=== PATIENT | male | born 1970 | race Caucasian/White ===

== ENCOUNTER 2017-01-23 10:31 | Emergency (ER) | payer MEDICARE, OTHER ==
[2015-10-23 11:16] VITALS: BP 152/92
--- NOTE | 2017-01-23 17:16 | Diagnostic Imaging Report ---
[facility] [address] [address] Report Submission Date: Jan 23, 2017 10:57:11 AM CDT Patient Study Name: MORGAN FAITH Date: Jan 23, 2017 10:34:40 AM CDT Modality Type: CR Gender: M Description: UPPER EXTREMITY : 74 Institution: [facility] Physician: CHIDI LITTLE - ER Left elbow 2 views History: Pain Findings: The left elbow is unremarkable without fracture, dislocation, arthropathy, focal bone lesion, or joint effusion. Electronically signed on Jan 23, 2017 10:57:11 AM CDT by: Price MOSQUERA
== END 2017-01-23 10:51 ==
LOC: ED 10:31
DX: M25.522 Pain in left elbow (principal)
CPT/HCPCS: 73070; 99283

== ENCOUNTER 2017-11-08 13:46 | Emergency (ER) | payer MEDICARE, OTHER ==
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
--- NOTE | 2017-11-09 00:36 | ED Physician Documentation ---
General Adult - HISTORIAN Historian: patient - HPI Stated Complaint: L great toe pain Onset: days ago (yesterday) Timing: still present Modifying Factors: tender to touch - ROS CONST: no problems - PAST HX Other History: diabetes Type 2 Allergies/Adverse Reactions: Allergies Allergy/AdvReac Type Severity Reaction Status Date / Time No Known Allergies Allergy Verified 11/08/17 13:57 Home Medications: Ambulatory Orders Medication Instructions Recorded Omeprazole [Prilosec] 20 mg PO DAILY 10/08/15 Cephalexin [Keflex] 500 mg PO TID #21 capsule 11/08/17 Metformin HCl [Glucophage] 2 tab PO BID 11/08/17 Tramadol HCl [Ultram] 50 mg PO Q4 #20 tab 11/08/17 - VITAL SIGNS Vital Signs: Vital Signs Temp Pulse Resp BP Pulse Ox 97.3 F L 113 H 17 138/81 97 11/08/17 13:53 11/08/17 13:53 11/08/17 13:53 11/08/17 13:53 11/08/17 13:53 General Adult Physical Exam - PHYSICAL EXAM GENERAL APPEARANCE: mild distress RESPIRATORY: no resp distress. No: wheezes, rales, rhonchi CVS: reg rate & rhythm, heart sounds normal, equal pulses, no murmur, no gallop SKIN: other (mild erythema to the great toe, distal aspect. Curling ingrowing toenail bilateral edges on the great toe. tender to touch on the distal toe. ) NEURO: oriented X3, mood/affect nml, cognition normal Discharge Clincal Impression: Cellulitis of toe Prescriptions: Cephalexin [Keflex] 500 mg PO TID #21 capsule Tramadol HCl [Ultram] 50 mg PO Q4 #20 tab Referrals: Primary Doctor,No [Primary Care Provider] - 2 Days Additional Instructions: Take Cephalexin 500mg three times a day and take tramadol as needed for pain. Soak foot in warm soapy water or Epsum salt for 30 minutes several times a day. Condition: Stable Disposition: 01 HOME, SELF-CARE
[2017-11-09 00:38] VITALS: BP 138/81
== END 2017-11-08 15:40 | disposition home or self-care (01) ==
LOC: ED 13:46
DX: L03.032 Cellulitis of left toe (principal)
CPT/HCPCS: 73630; 99283

== ENCOUNTER 2018-03-17 17:06 | Outpatient (CLI) | payer MEDICARE, OTHER ==
[2017-11-09 00:38] VITALS: BP 138/81
== END 2018-03-17 17:07 ==
LOC: LABRHC 17:06
PROVIDERS: ATTEND Physician Assistant
DX: M54.5 Low back pain (principal)
CPT/HCPCS: 87086

== ENCOUNTER 2018-05-19 13:02 | Emergency (ER) | payer MEDICARE, OTHER ==
[2017-11-09 00:38] VITALS: BP 138/81
== END 2018-05-19 14:28 | disposition home or self-care (01) ==
LOC: ED 13:02
DX: J02.8 Acute pharyngitis due to other specified organisms (principal)
CPT/HCPCS: 87880; 99282; 99283

== ENCOUNTER 2019-03-25 12:28 | Emergency (ER) | payer MEDICARE, OTHER ==
[2019-03-25 12:56] VITALS: BP 125/82
[2019-03-25] MEDS ORDERED: KETOROLAC TROMETHAMINE 60 MG/2 ML VIAL IM ONE (13:08)
--- NOTE | 2019-03-25 13:14 | Diagnostic Imaging Report ---
PATIENT MR#: [id number] PATIENT PATIENT NAME: MORGAN FAITH DATE OF : 1970 REFERRING PHYSICIAN: JAMAR GATES EXAM DATE: 03/25/2019 ACCESSION NUMBER: [id number] EXAM DESCRIPTION: RIBS UNILATERAL W/ PA CHEST Examination: Plain film chest/right ribs History: PT STATES RIB KEEPS "COMING OUT" AND HAS DIFFICULTY BREATHING Findings: 4 views of the chest and right ribs demonstrates normal cortical margins. No fracture or di slocation. Underlying parenchymal without abnormality. No focal consolidation or blunting of the costophrenic ma rgins. Impression: No rib fracture/abnormality. No acute cardiopulmonary process. Read by: Dr. Lloyd Mcdonald Transcribed by: Transcribed Date: Electronically signed by: Dr. Lloyd Mcdonald Date signed: 03/25/2019 1:13:22 PM
--- NOTE | 2019-03-25 13:23 | ED Physician Documentation ---
General Adult - HISTORIAN Historian: patient - HPI Stated Complaint: rt side rib pain Chief Complaint: General Adult Further Comments: yes (48 year old male patent presents with right rib pain. Patient reports getting his rib "put back in place" by the chiropractor weekly. Reports increased frequency of "rib popping out" and right thorasic back pain. Patient denies fever, chills. Complains of frequent cough.) - ROS CONST: no problems EYES/ENT: none CVS/RESP: chest pain (right chest wall pain) GI/: none MS/SKIN/LYMPH: none NEURO/PSYCH: denies: headache, fainting, dizziness, tingling, numbness, difficulty walking, difficulty with speech, anxiety, depression, other - PAST HX Past History: other (GERD) Allergies/Adverse Reactions: Allergies Allergy/AdvReac Type Severity Reaction Status Date / Time No Known Drug Allergies Allergy Verified 03/25/19 12:54 Home Medications: Ambulatory Orders Medication Instructions Recorded Omeprazole [Prilosec] 20 mg PO DAILY 10/08/15 metFORMIN HCl [Glucophage] 2 tab PO BID 11/08/17 CODEINE PHOSPHATE/guaiFENesin 10 ml PO Q6H #8 oz 03/25/19 [Robitussin AC] Ketorolac Tromethamine [Toradol] 10 mg PO TID #15 tablet 03/25/19 - SOCIAL HX Smoking History: cigarettes - FAMILY HX Family History: No - VITAL SIGNS Vital Signs: Vital Signs Temp Pulse Resp BP Pulse Ox 98.3 F 101 H 18 125/82 97 03/25/19 12:28 03/25/19 12:28 03/25/19 12:28 03/25/19 12:28 03/25/19 12:28 - REVIEWED ASSESSMENTS Nursing Assessment Reviewed: Yes Vitals Reviewed: Yes ED Results Lab/Radiology - Orders Orders: ED Orders Category Date Time Status RIBS UNILATERAL W/ PA CHEST [RAD] Stat Exams 03/25/19 Completed Ketorolac Tromethamine [Toradol] Med 03/25/19 13:08 Discontinued 60 mg IM NOW ONE General Adult Physical Exam - PHYSICAL EXAM GENERAL APPEARANCE: mild distress EENT: eye inspection normal, KARMEN RESPIRATORY: no resp distress, breath sounds normal, other (right chest wall tenderness with palpation between ribs 3,4,5) CVS: reg rate & rhythm, heart sounds normal, equal pulses, no murmur, no gallop, PMI nml, no JVD, no friction rub, irregularly irregular rhy ABDOMEN: soft, no organomegaly, normal bowel sounds, no abdominal bruit, no distension BACK: normal inspection, no CVA tenderness, other (rib paraspinous muscle tenderness with palpation along rib #4) SKIN: warm/dry, normal color EXTREMITIES: non-tender, normal range of motion, no evidence of injury, no edema NEURO: oriented X3, CN's nml as tested, motor nml, sensation nml, mood/affect nml Discharge Clincal Impression: Costal chondritis, Pleurisy Prescriptions: CODEINE PHOSPHATE/guaiFENesin [Robitussin AC] 10 ml PO Q6H #8 oz Ketorolac Tromethamine [Toradol] 10 mg PO TID #15 tablet Referrals: Primary Doctor,No [Primary Care Provider] - 2 Days Additional Instructions: Ice Rest No chiropractic manipulation for at least 7-10 days. You may use Tylenol every 4hour as needed for pain. Limit your dose to less than 4 G per day. Do not take ibuprofen, aleve, naproxen or any other NSAID while you are on toradol. You may want to try massage, over the counter lidocaine patches, biofreeze, gertrudis sneed or aspercream . If you are continuing to have pain after completing the toradol; please see your primary care doctor to discuss evaluation of your spine and further work up. Condition: Stable Disposition: 01 HOME, SELF-CARE Decision to Admit: NO Decision Time: 13:22
== END 2019-03-25 13:40 | disposition home or self-care (01) ==
LOC: ED 12:28
DX: M94.0 Chondrocostal junction syndrome [Tietze] (principal); R09.1 Pleurisy
CPT/HCPCS: 71101; 96372; 99283; 99284; J1885